=== PATIENT | female | born 1970 | race Caucasian/White ===

== ENCOUNTER 2016-12-30 13:05 | Emergency (ER) | payer OTHER ==
[~2016-12-30] VITALS: Ht 160 cm; Wt 59.0 kg
[~2016-12-30 13:05] MED LIST: AMOXICILLIN500 M3 PO; CIPRO500 MG PO; FLAGYL500 MG PO; FOLIC ACID0.4 MG PO; HYDROCODONE BIT1 T11 PO; K-Dur 20MEQ20 MEQ PO; MAGNESIUM OXID400 MG PO; Magnesium Oxid400 MG PO; NATURE'S BLEND F1 MG PO; NKHM; NORCO 5-325 TA1 EACH PO; NORFLEX100 MG PO; PREDNISONE10 MG PO; PROTONIX TR40 MG PO; PROVERA5 MG PO; VICODIN 5/500 505 MG PO; XANAX0.25 MG PO
[2016-12-30 14:03] LABS: HEMATOCRIT 33.8 % (37.0-47.0); HEMOGLOBIN 11.5 g/dl (12.0-16.0); MEAN CELL VOLUME 112.3 fl (81.0-99.0); MEAN CORPUSCULAR HGB 38.2 pg (27.0-31.0); MEAN PLATELET VOLUME 8.9 fl (9.6-12.3); PLATELET COUNT AUTOMATED 222 10*3/uL (130-400); RED BLOOD COUNT 3.01 10*6/uL (4.10-5.10); WHITE BLOOD COUNT 17.4 10*3/uL (4.8-10.8)
[2016-12-30 14:13] LABS: INTERNATIONAL NORM RATIO 1.4 (2.0-3.5); PROTHROMBIN TIME 15.3 SECONDS (9.0-12.4)
[2016-12-30 14:15] LABS: ALBUMIN 2.1 gm/dl (3.1-4.5); ALKALINE PHOSPHATASE 218 U/L (45-117); BILIRUBIN, TOTAL 3.9 mg/dl (0.2-1.0); BUN 5 mg/dl (7-24); CARBON DIOXIDE 36 mmol/L (21-32); CHLORIDE 85 mmol/L (98-107); EST GLOM FILT AFRICAN AMERICAN > 60 ml/min; GLUCOSE 121 mg/dL (65-99); POTASSIUM 2.6 mmol/L (3.5-5.1); SGOT/AST 60 IU/L (3-35); SGPT/ALT 18 U/L (12-78); SODIUM 130 mmol/L (136-145); TOTAL PROTEIN 7.2 gm/dL (6.4-8.2)
[2016-12-30 14:25] LABS: EOSINOPHIL # 0.2 10*3/uL (0-0.4); EOSINOPHILS 1 % (1-4); LYMPHOCYTE # 2.6 10*3/uL (1.3-4.4); METAMYELOCYTES 1 % (0-0); MONOCYTE # 0.9 10*3/uL (0.1-1.0); NEUTROPHIL # 13.6 10*3/uL (2.3-7.9); NEUTROPHILS 78 % (47-73); TOTAL CELLS COUNTED 100 #CELLS
[2016-12-30 14:26] LABS: PLATELET SUFFICIENCY NORMAL (NORMAL); POLYCHROMASIA SLIGHT
[2016-12-30 17:00] LABS: LA>2 REFLEX 2 HR DRAW NOW
[2016-12-30 18:40] VITALS: BP 104/68
[2016-12-31 06:10] LABS: HEPATITIS C VIRUS ANTIBODY <0.1 s/co (0.0-0.9)
== END 2016-12-30 19:22 | disposition short-term general hospital (02) ==
LOC: ED 13:05
PROVIDERS: Nurse Practitioner Family
DX: R65.20 Severe sepsis without septic shock (principal); K74.60 Unspecified cirrhosis of liver; R18.8 Other ascites; K52.9 Noninfective gastroenteritis and colitis, unspecified; E87.6 Hypokalemia; F17.200 Nicotine dependence, unspecified, uncomplicated

== ENCOUNTER → 2017-01-09 | Outpatient (CLI) | payer OTHER ==
[2017-01-09 11:13] LABS: HEMATOCRIT 33.3 % (37.0-47.0); HEMOGLOBIN 11.2 g/dl (12.0-16.0); MEAN CELL VOLUME 110.6 fl (81.0-99.0); MEAN CORPUSCULAR HGB 37.2 pg (27.0-31.0); MEAN CORPUSCULAR HGB CONC 33.6 g/dl (33.0-37.0); PLATELET COUNT AUTOMATED 270 10*3/uL (130-400); RED BLOOD COUNT 3.01 10*6/uL (4.10-5.10); RED CELL DISTRI WIDTH 14.7 % (0-14.5)
[2017-01-09 11:34] LABS: BASOPHIL # 0.3 10*3/uL (0-0.1); BASOPHILS 2 % (0-1); EOSINOPHIL # 0.1 10*3/uL (0-0.4); EOSINOPHILS 1 % (1-4); LYMPHOCYTE # 3.8 10*3/uL (1.3-4.4); MONOCYTE # 0.4 10*3/uL (0.1-1.0); NEUTROPHIL # 8.5 10*3/uL (2.3-7.9); NEUTROPHILS 65 % (47-73); PLATELET SUFFICIENCY NORMAL (NORMAL); TARGET CELLS FEW; TOTAL CELLS COUNTED 100 #CELLS
[2017-01-09 11:45] LABS: ALBUMIN 2.2 gm/dl (3.1-4.5); ALKALINE PHOSPHATASE 143 U/L (45-117); BILIRUBIN, TOTAL 2.7 mg/dl (0.2-1.0); BUN 5 mg/dl (7-24); CARBON DIOXIDE 32 mmol/L (21-32); CHLORIDE 94 mmol/L (98-107); EST GLOM FILT AFRICAN AMERICAN > 60 ml/min; GLUCOSE 86 mg/dL (65-99); POTASSIUM 3.3 mmol/L (3.5-5.1); SGOT/AST 54 IU/L (3-35); SGPT/ALT 14 U/L (12-78); SODIUM 136 mmol/L (136-145); TOTAL PROTEIN 7.3 gm/dL (6.4-8.2)
== END | disposition home or self-care (01) ==
LOC: LAB 10:26
DX: K70.31 Alcoholic cirrhosis of liver with ascites (principal)

== ENCOUNTER → 2017-02-01 | Outpatient (CLI) | payer OTHER ==
[2017-02-01 15:35] LABS: BASO # 0.1 10*3/uL (0.0-0.1); BASO % 0.6 % (0.0-1.0); EOS # 0.4 10*3/uL (0.0-0.4); EOS % 3.7 % (1.0-4.0); HEMATOCRIT 32.1 % (37.0-47.0); HEMOGLOBIN 10.8 g/dl (12.0-16.0); LYMPH % 32.3 % (27.0-41.0); MEAN CORPUSCULAR HGB CONC 33.6 g/dl (33.0-37.0); MEAN PLATELET VOLUME 8.9 fl (9.6-12.3); MONO # 0.7 10*3/uL (0.1-1.0); MONO % 7.5 % (3.0-9.0); NEUT # 5.2 10*3/uL (2.3-7.9); NEUT % 55.5 % (47.0-73.0); PLATELET COUNT AUTOMATED 228 10*3/uL (130-400); RED CELL DISTRI WIDTH 14.2 % (0-14.5); WHITE BLOOD COUNT 9.4 10*3/uL (4.8-10.8)
[2017-02-01 16:01] LABS: ALBUMIN 2.5 gm/dl (3.1-4.5); ALKALINE PHOSPHATASE 127 U/L (45-117); BUN 6 mg/dl (7-24); CARBON DIOXIDE 30 mmol/L (21-32); CHLORIDE 101 mmol/L (98-107); EST GLOM FILT AFRICAN AMERICAN > 60 ml/min; GLUCOSE 130 mg/dL (65-99); INTERNATIONAL NORM RATIO 1.2 (2.0-3.5); IRON 58 ug/dL (50-170); IRON SATURATION 44 %; POTASSIUM 4.1 mmol/L (3.5-5.1); PROTHROMBIN TIME 13.4 SECONDS (9.0-12.4); SGOT/AST 37 IU/L (3-35); SGPT/ALT 13 U/L (12-78); SODIUM 140 mmol/L (136-145); TOTAL PROTEIN 7.2 gm/dL (6.4-8.2); UIBC 72 ug/dL (110-365)
[2017-02-01 16:02] LABS: BILIRUBIN, DIRECT 0.5 mg/dL (0.0-0.2)
== END | disposition home or self-care (01) ==
LOC: LAB 14:26
PROVIDERS: Nurse Practitioner Family
DX: K70.31 Alcoholic cirrhosis of liver with ascites (principal); D64.9 Anemia, unspecified

== ENCOUNTER → 2017-02-07 | Outpatient (CLI) | payer OTHER ==
[2017-02-07 14:37] LABS: BUN 9 mg/dl (7-24); CARBON DIOXIDE 33 mmol/L (21-32); CHLORIDE 98 mmol/L (98-107); EST GLOM FILT AFRICAN AMERICAN > 60 ml/min; GLUCOSE 123 mg/dL (65-99); SODIUM 138 mmol/L (136-145)
== END | disposition home or self-care (01) ==
LOC: LAB 13:51
PROVIDERS: Nurse Practitioner Family
DX: K70.31 Alcoholic cirrhosis of liver with ascites (principal)

== ENCOUNTER → 2017-02-08 | Outpatient (CLI) | payer OTHER | END | disposition home or self-care (01) | LOC: MRI 08:00 | DX: K76.9 Liver disease, unspecified (principal); R18.8 Other ascites; R93.2 Abnormal findings on diagnostic imaging of liver and biliary tract; Z90.89 Acquired absence of other organs ==

== ENCOUNTER → 2017-02-15 | Outpatient (CLI) | payer OTHER ==
[2017-02-15 12:02] LABS: BUN 7 mg/dl (7-24); CARBON DIOXIDE 32 mmol/L (21-32); CHLORIDE 97 mmol/L (98-107); EST GLOM FILT AFRICAN AMERICAN > 60 ml/min; GLUCOSE 100 mg/dL (65-99); POTASSIUM 4.1 mmol/L (3.5-5.1); SODIUM 139 mmol/L (136-145)
== END | disposition home or self-care (01) ==
LOC: LAB 10:55
PROVIDERS: Nurse Practitioner Family
DX: K70.31 Alcoholic cirrhosis of liver with ascites (principal)

== ENCOUNTER → 2017-03-27 | Outpatient (CLI) | payer OTHER ==
[2017-03-27 14:49] LABS: BASO % 0.4 % (0.0-1.0); EOS # 0.3 10*3/uL (0.0-0.4); EOS % 3.4 % (1.0-4.0); HEMATOCRIT 34.5 % (37.0-47.0); HEMOGLOBIN 11.3 g/dl (12.0-16.0); LYMPH # 2.8 10*3/uL (1.3-4.4); LYMPH % 38.5 % (27.0-41.0); MEAN CELL VOLUME 102.4 fl (81.0-99.0); MEAN CORPUSCULAR HGB 33.5 pg (27.0-31.0); MEAN CORPUSCULAR HGB CONC 32.8 g/dl (33.0-37.0); MEAN PLATELET VOLUME 9.1 fl (9.6-12.3); MONO # 0.7 10*3/uL (0.1-1.0); MONO % 8.8 % (3.0-9.0); NEUT # 3.6 10*3/uL (2.3-7.9); NEUT % 48.4 % (47.0-73.0); PLATELET COUNT AUTOMATED 180 10*3/uL (130-400); RED BLOOD COUNT 3.37 10*6/uL (4.10-5.10); RED CELL DISTRI WIDTH 15.6 % (0-14.5); WHITE BLOOD COUNT 7.4 10*3/uL (4.8-10.8)
== END | disposition home or self-care (01) ==
LOC: LAB 14:12
PROVIDERS: Nurse Practitioner Family
DX: D64.9 Anemia, unspecified (principal)

== ENCOUNTER → 2017-03-28 | Outpatient (CLI) | payer OTHER | END | disposition home or self-care (01) | LOC: LAB 02:10 | DX: D64.9 Anemia, unspecified (principal) ==

== ENCOUNTER → 2017-04-03 | Outpatient (CLI) | payer OTHER | END | disposition home or self-care (01) | LOC: LAB 10:55 | DX: D64.9 Anemia, unspecified (principal) ==

== ENCOUNTER → 2017-04-04 | Outpatient (CLI) | payer OTHER | END | disposition home or self-care (01) | LOC: LAB 02:16 | DX: D64.9 Anemia, unspecified (principal) ==

== ENCOUNTER → 2017-06-06 | Outpatient (CLI) | payer OTHER ==
[2017-06-06 13:16] LABS: BASO % 0.3 % (0.0-1.0); EOS # 0.2 10*3/uL (0.0-0.4); EOS % 1.6 % (1.0-4.0); HEMATOCRIT 41.8 % (37.0-47.0); HEMOGLOBIN 13.9 g/dl (12.0-16.0); LYMPH # 2.6 10*3/uL (1.3-4.4); MEAN CELL VOLUME 96.5 fl (81.0-99.0); MEAN CORPUSCULAR HGB 32.1 pg (27.0-31.0); MEAN CORPUSCULAR HGB CONC 33.3 g/dl (33.0-37.0); MEAN PLATELET VOLUME 8.9 fl (9.6-12.3); MONO % 9.7 % (3.0-9.0); NEUT # 6.9 10*3/uL (2.3-7.9); PLATELET COUNT AUTOMATED 212 10*3/uL (130-400); RED BLOOD COUNT 4.33 10*6/uL (4.10-5.10); WHITE BLOOD COUNT 10.8 10*3/uL (4.8-10.8)
[2017-06-06 13:51] LABS: ALBUMIN 3.3 gm/dl (3.1-4.5); ALKALINE PHOSPHATASE 154 U/L (45-117); BUN 16 mg/dl (7-24); CHLORIDE 96 mmol/L (98-107); CHOLESTEROL 158 mg/dL (<200); CREATININE 1.03 mg/dL (0.55-1.02); HDL CHOLESTEROL 51 mg/dl (40-60); LDL CHOLESTEROL 76 mg/dL (9-159); POTASSIUM 4.4 mmol/L (3.5-5.1); SGOT/AST 32 IU/L (3-35); SGPT/ALT 17 U/L (12-78); SODIUM 134 mmol/L (136-145); TOTAL PROTEIN 8.5 gm/dL (6.4-8.2); TRIGLYCERIDES 155 mg/dl (<150); VLDL CHOLESTEROL 31 mg/dL (6-40)
== END | disposition home or self-care (01) ==
LOC: LAB 13:01
PROVIDERS: Internal Medicine
DX: K70.30 Alcoholic cirrhosis of liver without ascites (principal); R79.89 Other specified abnormal findings of blood chemistry

== ENCOUNTER → 2017-07-11 | Outpatient (CLI) | payer OTHER | END | disposition home or self-care (01) | LOC: MAMMO 17:03 | DX: Z12.31 Encounter for screening mammogram for malignant neoplasm of breast (principal) ==

== ENCOUNTER → 2017-07-16 | Outpatient (CLI) | payer OTHER ==
[2017-07-16 16:20] LABS: HEMATOCRIT 39.5 % (37.0-47.0); MEAN CELL VOLUME 97.8 fl (81.0-99.0); MEAN CORPUSCULAR HGB 32.2 pg (27.0-31.0); MEAN CORPUSCULAR HGB CONC 32.9 g/dl (33.0-37.0); MEAN PLATELET VOLUME 9.4 fl (9.6-12.3); PLATELET COUNT AUTOMATED 202 10*3/uL (130-400); RED BLOOD COUNT 4.04 10*6/uL (4.10-5.10); RED CELL DISTRI WIDTH 15.3 % (0-14.5)
[2017-07-16 16:34] LABS: INTERNATIONAL NORM RATIO 1.1 (2.0-3.5)
[2017-07-16 16:43] LABS: ALBUMIN 3.5 gm/dl (3.1-4.5); ALKALINE PHOSPHATASE 166 U/L (45-117); BUN 13 mg/dl (7-24); CHLORIDE 95 mmol/L (98-107); CREATININE 1.08 mg/dL (0.55-1.02); POTASSIUM 3.9 mmol/L (3.5-5.1); SGOT/AST 32 IU/L (3-35); SGPT/ALT 22 U/L (12-78); SODIUM 132 mmol/L (136-145); TOTAL PROTEIN 7.9 gm/dL (6.4-8.2)
[2017-07-16 16:45] LABS: ATYPICAL LYMPHS 4 % (0-0); PLATELET SUFFICIENCY NORMAL (NORMAL); TOTAL CELLS COUNTED 100 #CELLS
[2017-07-16 17:00] LABS: BILIRUBIN, DIRECT 0.3 mg/dL (0.0-0.2)
== END | disposition home or self-care (01) ==
LOC: LAB 14:57
PROVIDERS: Internal Medicine Gastroenterology
DX: K70.31 Alcoholic cirrhosis of liver with ascites (principal)

== ENCOUNTER → 2017-11-27 | Outpatient (CLI) | payer OTHER | END | disposition home or self-care (01) | LOC: RAD 12:20 | DX: M47.897 Other spondylosis, lumbosacral region (principal); V89.2XXD Person injured in unspecified motor-vehicle accident, traffic, subsequent encounter ==

== ENCOUNTER 2018-11-20 16:19 | Emergency (ER) | payer OTHER ==
[~2018-11-20] VITALS: Ht 160 cm; Wt 59.0 kg
[2018-11-20 16:20] VITALS: BP 108/77
[2018-11-20] MEDS ORDERED: IBUPROFEN600 MG PO (18:22)
== END 2018-11-20 18:53 | disposition home or self-care (01) ==
LOC: ED 16:19
DX: M72.2 Plantar fascial fibromatosis (principal); F17.200 Nicotine dependence, unspecified, uncomplicated

== ENCOUNTER → 2019-04-05 | Outpatient (CLI) | payer OTHER ==
[~2019-04-05] MED LIST changes: +IBUPROFEN600 MG PO
[2019-04-05 09:57] LABS: BASO % 0.3 % (0.0-1.0); EOS # 0.3 10*3/uL (0.0-0.4); EOS % 2.8 % (1.0-4.0); HEMATOCRIT 34.5 % (37.0-47.0); HEMOGLOBIN 11.2 g/dl (12.0-16.0); LYMPH # 4.8 10*3/uL (1.3-4.4); LYMPH % 41.3 % (27.0-41.0); MEAN CELL VOLUME 96.6 fl (81.0-99.0); MEAN CORPUSCULAR HGB 31.4 pg (27.0-31.0); MEAN CORPUSCULAR HGB CONC 32.5 g/dl (33.0-37.0); MONO # 1.3 10*3/uL (0.1-1.0); MONO % 10.8 % (3.0-9.0); NEUT # 5.2 10*3/uL (2.3-7.9); NEUT % 44.5 % (47.0-73.0); PLATELET COUNT AUTOMATED 247 10*3/uL (130-400); RED BLOOD COUNT 3.57 10*6/uL (4.10-5.10); RED CELL DISTRI WIDTH 14.9 % (0-14.5); WHITE BLOOD COUNT 11.6 10*3/uL (4.8-10.8)
[2019-04-05 10:29] LABS: ALBUMIN 3.4 gm/dl (3.1-4.5); CREATININE 2.13 mg/dL (0.55-1.02); POTASSIUM 3.3 mmol/L (3.5-5.1); TOTAL PROTEIN 7.6 gm/dL (6.4-8.2)
== END | disposition home or self-care (01) ==
LOC: LAB 09:29
PROVIDERS: Family Medicine
DX: K70.30 Alcoholic cirrhosis of liver without ascites (principal)

== ENCOUNTER → 2019-10-03 | Outpatient (CLI) | payer OTHER ==
[2019-10-03 15:41] LABS: BILIRUBIN 1+ (NEGATIVE); BLOOD NEGATIVE (NEGATIVE); CLARITY SL CLOUDY (CLEAR); COLOR YELLOW (YELLOW); GLUCOSE NEGATIVE (NEGATIVE); KETONE NEGATIVE (NEGATIVE); LEUKO ESTERASE TRACE (NEGATIVE); NITRITE NEGATIVE (NEGATIVE)
[2019-10-03 15:42] LABS: BACTERIA 1+; EPITHELIAL CELLS TNTC
[2019-10-03 16:00] LABS: BUN 10 mg/dl (7-24); CHLORIDE 99 mmol/L (98-107); CREATININE 0.96 mg/dL (0.55-1.02); SODIUM 134 mmol/L (136-145)
== END | disposition home or self-care (01) ==
LOC: LAB 14:49
PROVIDERS: Family Medicine
DX: N18.4 Chronic kidney disease, stage 4 (severe) (principal)

== ENCOUNTER 2020-06-18 17:10 | Emergency (ER) | payer OTHER ==
[~2020-06-18] VITALS: Wt 67.1 kg
[2020-06-18 17:15] VITALS: BP 101/67
[2020-06-18] MEDS ORDERED: ALLEGRA-D 24 H1 EACH PO (17:51)
[2020-06-18] MEDS ORDERED: FLONASE ALLERG9.9 ML NAS (17:51)
== END 2020-06-18 18:43 | disposition home or self-care (01) ==
LOC: ED 17:10
DX: H61.22 Impacted cerumen, left ear (principal); H66.90 Otitis media, unspecified, unspecified ear; F41.9 Anxiety disorder, unspecified; F17.200 Nicotine dependence, unspecified, uncomplicated; Z79.899 Other long term (current) drug therapy

== ENCOUNTER → 2020-07-22 | Outpatient (CLI) | payer OTHER ==
[~2020-07-22] MED LIST changes: +ALLEGRA-D 24 H1 EACH PO; +FLONASE ALLERG9.9 ML NAS
== END | disposition home or self-care (01) ==
LOC: COVID19 14:57
PROVIDERS: ATTEND Hospitalist
DX: Z20.828 Contact with and (suspected) exposure to other viral communicable diseases (principal)

== ENCOUNTER → 2020-08-11 | Outpatient (CLI) | payer OTHER ==
[2020-08-11 17:13] LABS: BILIRUBIN Negative (Negative); BLOOD Negative (Negative); CLARITY Cloudy (Clear); COLOR Yellow (Yellow); GLUCOSE Negative (Negative); KETONE Negative (Negative); LEUKO ESTERASE 2+ (Negative); NITRITE Negative (Negative); UROBILINOGEN 0.2 E.U./dl (0.0-1.0)
[2020-08-11 17:28] LABS: BACTERIA 2+
== END | disposition home or self-care (01) ==
LOC: LAB 16:36
PROVIDERS: ATTEND Family Medicine
DX: N30.00 Acute cystitis without hematuria (principal)

== ENCOUNTER → 2020-11-16 | Outpatient (CLI) | payer OTHER | END | disposition home or self-care (01) | LOC: COVID19 12:13 | PROVIDERS: ATTEND Internal Medicine | DX: Z20.822 Contact with and (suspected) exposure to COVID-19 (principal) ==

== ENCOUNTER → 2021-07-20 | Outpatient (CLI) | payer OTHER | END | disposition home or self-care (01) | LOC: COVID19 15:11 | PROVIDERS: ATTEND Internal Medicine | DX: Z11.52 Encounter for screening for COVID-19 (principal) ==

== ENCOUNTER 2022-03-09 10:44 | Emergency (ER) | payer OTHER ==
[~2022-03-09] VITALS: Ht 160 cm; Wt 72.6 kg
[2022-03-09 11:12] VITALS: BP 126/74
[2022-03-09] MEDS ORDERED: ZANAFLEX4 MG PO (16:30)
== END 2022-03-09 16:37 | disposition home or self-care (01) ==
LOC: ED 10:44
DX: S16.1XXA Strain of muscle, fascia and tendon at neck level, initial encounter (principal); S05.12XA Contusion of eyeball and orbital tissues, left eye, initial encounter; F17.200 Nicotine dependence, unspecified, uncomplicated; Z79.899 Other long term (current) drug therapy; Y04.0XXA Assault by unarmed brawl or fight, initial encounter; Y93.89 Activity, other specified; Y92.89 Other specified places as the place of occurrence of the external cause; Y99.9 Unspecified external cause status

== ENCOUNTER 2022-03-31 23:52 | Inpatient (IN) | payer OTHER ==
[~2022-03-31 23:52] MED LIST changes: +ZANAFLEX4 MG PO
[2022-04-01] VITALS (10 sets, daily range): BP systolic 80–134; BP diastolic 39–83
[2022-04-01 00:38] LABS: BASO % 0.3 % (0.0-1.0); EOS # 0.3 10*3/uL (0.0-0.4); EOS % 3.5 % (1.0-4.0); HEMATOCRIT 41.7 % (37.0-47.0); LYMPH # 3.7 10*3/uL (1.3-4.4); LYMPH % 37.7 % (27.0-41.0); MEAN CELL VOLUME 98.1 fl (81.0-99.0); MEAN CORPUSCULAR HGB 33.9 pg (27.0-31.0); MEAN CORPUSCULAR HGB CONC 34.5 g/dl (33.0-37.0); MEAN PLATELET VOLUME 9.2 fl (9.6-12.3); MONO # 0.8 10*3/uL (0.1-1.0); MONO % 8.1 % (3.0-9.0); NEUT # 4.9 10*3/uL (2.3-7.9); NEUT % 50.1 % (47.0-73.0); PLATELET COUNT AUTOMATED 202 10*3/uL (130-400); RED BLOOD COUNT 4.25 10*6/uL (4.10-5.10); RED CELL DISTRI WIDTH 12.8 % (0-14.5); WHITE BLOOD COUNT 9.8 10*3/uL (4.8-10.8)
[2022-04-01 00:55] LABS: ALKALINE PHOSPHATASE 217 U/L (45-117); BUN 4 mg/dl (7-24); CHLORIDE 98 mmol/L (98-107); CPK 51 U/L (26-192); SGOT/AST 39 IU/L (3-35); SGPT/ALT 17 U/L (12-78); SODIUM 139 mmol/L (136-145); TOTAL PROTEIN 6.8 gm/dL (6.4-8.2)
[2022-04-01 00:56] LABS: ACETAMINOPHEN (TYLENOL) < 5.0 ug/ml (10-30)
[2022-04-01 02:03] LABS: BILIRUBIN Negative (Negative); BLOOD Negative (Negative); CLARITY Clear (Clear); COLOR Yellow (Yellow); GLUCOSE Negative (Negative); KETONE Negative (Negative); LEUKO ESTERASE Trace (Negative); NITRITE Negative (Negative); SPECIFIC GRAVITY <= 1.005 (1.001-1.030)
[2022-04-01 02:10] LABS: URINE AMPHETAMINES < 1000 (1000ng/ml); URINE BARBITURATES < 200 (200ng/ml); URINE BENZODIAZEPINES > 200 (200ng/ml); URINE CANNABINOIDS (THC) < 50 (50ng/ml); URINE COCAINE < 300 (300ng/ml); URINE METHADONE < 300 (300ng/ml); URINE OPIATES < 300 (300ng/ml)
[2022-04-01 02:13] LABS: URINE PHENCYCLIDINE < 25 (25ng/ml)
[2022-04-01 02:15] LABS: BACTERIA 1+
[2022-04-01 16:28] LABS: BASO % 0.2 % (0.0-1.0); EOS # 0.3 10*3/uL (0.0-0.4); EOS % 5.4 % (1.0-4.0); HEMATOCRIT 41.5 % (37.0-47.0); LYMPH # 2.7 10*3/uL (1.3-4.4); LYMPH % 44.5 % (27.0-41.0); MEAN CELL VOLUME 99.5 fl (81.0-99.0); MEAN CORPUSCULAR HGB 33.8 pg (27.0-31.0); MEAN PLATELET VOLUME 8.9 fl (9.6-12.3); MONO # 0.5 10*3/uL (0.1-1.0); NEUT # 2.6 10*3/uL (2.3-7.9); NEUT % 41.6 % (47.0-73.0); PLATELET COUNT AUTOMATED 156 10*3/uL (130-400); RED BLOOD COUNT 4.17 10*6/uL (4.10-5.10); WHITE BLOOD COUNT 6.1 10*3/uL (4.8-10.8)
[2022-04-01 16:45] LABS: ALKALINE PHOSPHATASE 211 U/L (45-117); BUN 6 mg/dl (7-24); CHLORIDE 110 mmol/L (98-107); CREATININE 0.63 mg/dL (0.55-1.02); POTASSIUM 3.4 mmol/L (3.5-5.1); SGOT/AST 33 IU/L (3-35); SODIUM 143 mmol/L (136-145); TOTAL PROTEIN 5.9 gm/dL (6.4-8.2)
[2022-04-01 16:49] LABS: SGPT/ALT 16 U/L (12-78)
[2022-04-02] VITALS: BP 112/79
[2022-04-02 01:34] VITALS: BP 118/70
[2022-04-02 03:30] VITALS: BP 108/71
[2022-04-02 05:52] LABS: ALKALINE PHOSPHATASE 199 U/L (45-117); BUN 10 mg/dl (7-24); CHLORIDE 111 mmol/L (98-107); CREATININE 0.56 mg/dL (0.55-1.02); POTASSIUM 4.1 mmol/L (3.5-5.1); SGOT/AST 28 IU/L (3-35); SGPT/ALT 15 U/L (12-78); SODIUM 146 mmol/L (136-145)
[2022-04-02 05:57] LABS: FREE T4 1.07 ng/dl (0.76-1.46); THYROID STIM HORMONE (HS) 0.243 uIU/ml (0.358-4.75)
[2022-04-02 06:09] LABS: BASO % 0.4 % (0.0-1.0); EOS # 0.4 10*3/uL (0.0-0.4); EOS % 6.5 % (1.0-4.0); HEMATOCRIT 42.2 % (37.0-47.0); LYMPH # 2.2 10*3/uL (1.3-4.4); LYMPH % 39.7 % (27.0-41.0); MEAN CELL VOLUME 102.4 fl (81.0-99.0); MEAN CORPUSCULAR HGB CONC 33.2 g/dl (33.0-37.0); MEAN PLATELET VOLUME 9.6 fl (9.6-12.3); MONO # 0.5 10*3/uL (0.1-1.0); NEUT # 2.5 10*3/uL (2.3-7.9); NEUT % 44.2 % (47.0-73.0); PLATELET COUNT AUTOMATED 145 10*3/uL (130-400); RED BLOOD COUNT 4.12 10*6/uL (4.10-5.10); WHITE BLOOD COUNT 5.5 10*3/uL (4.8-10.8)
[2022-04-02 06:30] VITALS: BP 137/85
[2022-04-02 09:45] LABS: VITAMIN D, 25-HYDROXY 56.7 ng/mL (30-100)
== END 2022-04-02 10:14 | disposition home or self-care (01) | DRG 917 ==
LOC: ED 23:52 → EDHOLD 04-01 02:15
PROVIDERS: Emergency Medicine; Student in an Organized Health Care Education/Training Program; ADMIT Internal Medicine; ATTEND Internal Medicine
DX: T42.4X2A Poisoning by benzodiazepines, intentional self-harm, initial encounter (principal); J96.01 Acute respiratory failure with hypoxia; E44.0 Moderate protein-calorie malnutrition; E87.0 Hyperosmolality and hypernatremia; F10.929 Alcohol use, unspecified with intoxication, unspecified; I95.9 Hypotension, unspecified; K76.0 Fatty (change of) liver, not elsewhere classified; E87.6 Hypokalemia; R74.01 Elevation of levels of liver transaminase levels; R74.8 Abnormal levels of other serum enzymes; E80.6 Other disorders of bilirubin metabolism; Z79.899 Other long term (current) drug therapy; Y92.89 Other specified places as the place of occurrence of the external cause

== ENCOUNTER 2022-10-02 03:49 | Emergency (ER) | payer OTHER ==
[~2022-10-02] VITALS: Ht 162.5 cm; Wt 68.0 kg
[2022-10-02 04:11] VITALS: BP 153/95
[2022-10-02 04:20] LABS: BASO % 0.5 % (0.0-1.0); EOS # 0.3 10*3/uL (0.0-0.4); HEMATOCRIT 41.7 % (37.0-47.0); LYMPH # 2.5 10*3/uL (1.3-4.4); LYMPH % 40.4 % (27.0-41.0); MEAN CORPUSCULAR HGB 33.9 pg (27.0-31.0); MEAN CORPUSCULAR HGB CONC 32.6 g/dl (33.0-37.0); MONO # 0.7 10*3/uL (0.1-1.0); MONO % 11.9 % (3.0-9.0); NEUT # 2.6 10*3/uL (2.3-7.9); PLATELET COUNT AUTOMATED 157 10*3/uL (130-400); RED BLOOD COUNT 4.01 10*6/uL (4.10-5.10); RED CELL DISTRI WIDTH 13.6 % (0-14.5); WHITE BLOOD COUNT 6.2 10*3/uL (4.8-10.8)
[2022-10-02 04:39] LABS: ALKALINE PHOSPHATASE 216 U/L (46-116); CHLORIDE 104 mmol/L (98-107); POTASSIUM 3.6 mmol/L (3.4-5.1); SGPT/ALT 15 U/L (10-49); TOTAL PROTEIN 6.7 gm/dL (6.0-8.0)
[2022-10-02 05:00] LABS: BUN 11 mg/dl (9-23)
== END 2022-10-02 06:38 | disposition home or self-care (01) ==
LOC: ED 03:49
PROVIDERS: Emergency Medicine
DX: R07.9 Chest pain, unspecified (principal); Z98.51 Tubal ligation status; Z87.891 Personal history of nicotine dependence

== ENCOUNTER → 2022-12-22 | Outpatient (CLI) | payer BC | END | disposition home or self-care (01) | LOC: RAD 13:46 | PROVIDERS: ATTEND Family Medicine | DX: M43.8X4 Other specified deforming dorsopathies, thoracic region (principal); M54.6 Pain in thoracic spine; J40 Bronchitis, not specified as acute or chronic; R05.8 Other specified cough; R07.81 Pleurodynia ==

== ENCOUNTER → 2023-01-09 | Outpatient (CLI) | payer BC | END | disposition home or self-care (01) | LOC: RAD 02:13 | PROVIDERS: ATTEND Family Medicine | DX: Z13.820 Encounter for screening for osteoporosis (principal); M85.852 Other specified disorders of bone density and structure, left thigh; Z78.0 Asymptomatic menopausal state ==